=== PATIENT | female | born 1930 | race Caucasian/White ===

== ENCOUNTER 2017-02-21 09:13 | Inpatient (IN) | payer MEDICARE ==
--- NOTE | 2017-02-21 09:44 | Emergency Department Record ---
History of Present Illness - General Chief complaint: Weakness Stated complaint: WEAK, DIZZY Time Seen by Provider: 02/21/17 09:32 Source: Patient, Family, EMS Mode of Arrival: Stretcher - History of Present Illness Initial comments: The patient states she awakened this morning and attempted to get up to go to the bathroom. When she stood up by the bed, she felt a severe urge to urinate, but her legs "wouldn't move" to get to the bathroom. She also felt lightheaded, so fell backwards onto her bed. She may have had near syncope at that time, but she denies f,c,n,c,diaphoresis, chest pain, pressure, indigestion, tightness. EMS reports patient orthostatic at scene: 172/90 lying down to 117 systolic standing with dizzy symptoms. She now denies any symptoms resting on cart . PMH includes GERD, htn, DVT, CAD, low thyroid. PSH includes lung cancer l995 with lobectomy and no recurrence, appy, thyroidectomy. Son at bedside reports that his mother lives alone in her own home, has her medications electronically regulated for her to take, occasionally hallucinates at night time. He is there every day after work to check on her. She was incontinent at home due to this event. Her PCP is Dr. Cook. Complaint: Generalized weakness -: Unknown Location: Generalized Improves with: None Worsens with: None Associated Symptoms: Denies other symptoms - Naty Coma Scale Eye Response: (4) Open spontaneously Motor Response: (6) Obeys commands Verbal Response: (5) Oriented [place] Total: 15 - Related Data Home Medications Medication Instructions Recorded Confirmed Last Taken Cholecalciferol (Vitamin D3) 1,000 unit PO QHS 03/13/15 02/21/17 1 Day Ago [Vitamin D3] ~02/20/17 Folic Acid/Multivit-Min/Lutein 1 each PO DAILY tab.chew 03/04/16 02/21/17 1 Day Ago [Centrum Silver Chewable Tablet] ~02/20/17 Allergies Allergy/AdvReac Type Severity Reaction Status Date / Time Penicillins [PENICILLINS] Allergy Mild RASH Verified 02/21/17 09:24 Sulfa (Sulfonamide Allergy Mild RASH Verified 02/21/17 09:24 Antibiotics) Travel Screening - Travel/Exposure Within Last 30 Days Have you traveled within the last 30 days?: No Review of Systems Reviewed: No additional complaints except as noted below Constitutional: Reports: As per HPI. Denies: Chills, Fever, Malaise, Night sweats, Weakness, Weight change Eyes: Reports: As per HPI. Denies: Eye discharge, Eye pain, Photophobia, Vision change ENT: Reports: As per HPI. Denies: Congestion, Dental pain, Ear pain, Epistaxis , Hearing loss, Throat pain Respiratory: Reports: As per HPI. Denies: Cough, Dyspnea, Hemoptysis, Stridor, Wheezes Cardiovascular: Reports: As per HPI. Denies: Arrhythmia, Chest pain, Dyspnea on exertion, Edema, Murmurs, Orthopnea, Palpitations, Paroxysmal nocturnal dyspnea, Rheumatic Fever, Syncope Endocrine: Reports: As per HPI. Denies: Fatigue, Heat or cold intolerance, Polydipsia, Polyuria Gastrointestinal: Reports: As per HPI. Denies: Abdominal pain, Constipation, Diarrhea, Hematemesis, Hematochezia, Melena, Nausea, Vomiting Genitourinary: Reports: As per HPI. Denies: Abnormal menses, Discharge, Dyspareunia, Dysuria, Frequency, Hematuria, Incontinence, Retention, Urgency Musculoskeletal: Reports: As per HPI. Denies: Arthralgia, Back pain, Gout, Joint swelling, Myalgia, Neck pain Skin: Reports: As per HPI. Denies: Bruising, Change in color, Change in hair/ nails, Lesions, Pruritus, Rash Neurological: Reports: As per HPI. Denies: Abnormal gait, Confusion, Headache, Numbness, Paresthesias, Seizure, Tingling, Tremors, Vertigo, Weakness Psychiatric: Reports: As per HPI. Denies: Anxiety, Auditory hallucinations, Depression, Homicidal thoughts, Suicidal thoughts, Visual hallucinations Hematological/Lymphatic: Reports: As per HPI. Denies: Anemia, Blood Clots, Easy bleeding, Easy bruising, Swollen glands Past Medical History - SOCIAL HISTORY Smoking Status: Former smoker Alcohol Use: None Drug Use: None - RESPIRATORY Hx Respiratory Disorders: No - CARDIOVASCULAR Hx Cardio Disorders: Yes Hx Deep Vein Thrombosis: Yes Hx Hypertension: Yes - NEURO Hx Neuro Disorders: No - GI Hx GI Disorders: Yes Hx Reflux: Yes - Hx Genitourinary Disorders: No - ENDOCRINE Hx Endocrine Disorders: Yes Hx Thyroid Disease: Yes - MUSCULOSKELETAL Hx Musculoskeletal Disorders: Yes Hx Arthritis: Yes - PSYCH Hx Psych Problems: Yes Hx Anxiety: Yes - HEMATOLOGY/ONCOLOGY Hx Hematology/Oncology Disorders: Yes Hx Cancer: Yes (lung,breast) Family Medical History Any Significant Family History?: No Physical Exam - General General Appearance: Alert (able to give complete history of her CC), Oriented x3 , Cooperative, No acute distress - Head Head exam: Normal inspection - Eye Eye exam: Normal appearance, PERRL Pupils: Normal accommodation - ENT ENT exam: Normal exam, Mucous membranes moist, Normal external ear exam, Normal orophraynx, Other (bilateral cerumen occlusions) Ear exam: Normal external inspection. negative: External canal tenderness Nasal Exam: Normal inspection. negative: Discharge, Sinus tenderness Mouth exam: Normal external inspection, Tongue normal Teeth exam: Normal inspection. negative: Dental caries Throat exam: Normal inspection. negative: Tonsillar erythema, Tonsillar exudate - Neck Neck exam: Normal inspection, Full ROM, Other (well healed barely visible surgical scar over thyroid region of neck). negative: Lymphadenopathy, Meningismus, Tenderness - Respiratory Respiratory exam: Normal lung sounds bilaterally. negative: Respiratory distress - Cardiovascular Cardiovascular Exam: Regular rate, Normal rhythm, Normal heart sounds - GI/Abdominal GI/Abdominal exam: Soft, Normal bowel sounds. negative: Tenderness - Rectal Rectal exam: Deferred - exam: Deferred - Extremities Extremities exam: Normal inspection, Full ROM, Normal capillary refill. negative: Calf tenderness, Pedal edema, Tenderness - Back Back exam: Reports: Normal inspection, Full ROM. Denies: Muscle spasm, Rash noted, Tenderness - Neurological Neurological exam: Alert, CN II-XII intact, Oriented X3, Reflexes normal - Psychiatric Psychiatric exam: Normal affect, Normal mood - Skin Skin exam: Dry, Intact, Normal color, Warm Course Vital Signs 02/21/17 09:15 Temperature 98.3 F Pulse Rate 68 Respiratory 18 Rate Blood Pressure 161/85 Pulse Ox 98 - Reevaluation(s) Reevaluation #1: Per nurse, the EMS recorded orthostatic changes of BP from 172/90 systolic down to 116/ when standing with symptoms of dizziness but not syncope. 02/21/17 10:05 Reevaluation #2: HUMPHREY Stephens who accepts patient for Dr. Cook service. Kat will write orders when patient gets to floor. 02/21/17 12:23 02/21/17 12:25 Medical Decision Making - Management Options MDM Management: Additional Work-up Planned (e.g. ADM/Transfer/OP Study) - Data Complexity MDM Data: Labs Ordered and/or Reviewed, X-Ray Ordered and/or Reviewed (CXR: Emphysematous changes; old thoracotomy, left volume loss. Noncontrast Head CT: No acute intracranial process; remote lacunar infarcts in the lentiform nuclei per Radiologist.), EKG Ordered and/or Reviewed - Lab Data Result diagrams: 02/21/17 09:37 02/21/17 11:29 - EKG Data -: EKG Interpreted by Al EKG: No Acute Changes (Compared to prior of 04-14-16 her R waves progression has worsened slightly, one lead difference, but may be lead placement.) Disposition Disposition: Admit Clinical Impression: Near syncope, Renal insufficiency, Orthostasis Disposition: Still a Patient at [facility] Decision to Admit: Admit from ER Decision to Admit Date: 02/21/17 Decision to Admit Time: 12:24 Accepting Physician: Dr. Cook/ Kat Sanchez Time Discussed w/Accepting Physician: 12:24 Condition: (1) Good
[2017-02-21 09:49] LABS: BASO % 0.5 % (0-6); EOS % 1.6 % (0-6); GRAN % 54.1 % (47-80); HEMATOCRIT 36.5 % (35.0-47.0); LYMPH % 35.8 % (16-45); MEAN CELL VOLUME 97.9 fl (81-97); MEAN CORPUSCULAR HGB CONC 32.9 g/dl (32-36); MEAN PLATELET VOLUME 12.1 fl (7.4-10.4); PLATELET COUNT 195 K/uL (130-400); RED BLOOD COUNT 3.73 M/uL (3.80-5.40); RED CELL DISTRIBUTION WIDTH 13.4 % (11.5-14.5); WHITE BLOOD COUNT W/O DIFF 6.1 K/uL (4.2-12.2)
[2017-02-21 10:07] LABS: MEAN CORPUSCULAR HEMOGLOBIN 32.1 pg (27-33)
[2017-02-21 10:08] LABS: LACTIC ACID 1.3 mmol/L (0.7-2.1)
[2017-02-21 10:19] LABS: INR 2.58; PROTHROMBIN TIME (PATIENT) 29.1 SECONDS (9.5-12.1)
[2017-02-21 10:35] LABS: D-DIMER < 0.19 mg/L FEU (0-0.59)
[2017-02-21] MEDS ORDERED: 0.9 % SODIUM CHLORIDE 500ML 250 ML IV SCH (10:45)
[2017-02-21 11:30] LABS: TOTAL PROTEIN 7.2 gm/dL (6.3-8.2)
[2017-02-21 11:31] LABS: ALKALINE PHOSPHATASE 68 U/L (38-126); ALT/SGPT 41 U/L (9-52); AST/SGOT 48 U/L (14-36); BILIRUBIN,DIRECT 0.3 mg/dL (0-0.3); CKMB 3.3 ug/L (0-6); TROPONIN I < 0.012 ng/mL (0.00-0.034)
[2017-02-21 11:34] LABS: URINE APPEARANCE CLEAR; URINE BILIRUBIN NEGATIVE (NEGATIVE); URINE BLOOD NEGATIVE (NEGATIVE); URINE COLOR YELLOW; URINE GLUCOSE (UA) NEGATIVE (NEGATIVE); URINE KETONE NEGATIVE (NEGATIVE); URINE LEUKOCYTE ESTERASE NEGATIVE (NEGATIVE); URINE NITRITE NEGATIVE (NEGATIVE); URINE PROTEIN NEGATIVE (NEGATIVE); URINE UROBILINOGEN 0.2 E.U./dL (0.20 - 1.00)
[2017-02-21 12:05] LABS: ANION GAP 4.1 (7-16); CARBON DIOXIDE 27.9 mmol/L (22-30); CREATININE 1.8 mg/dL (0.52-1.04)
[2017-02-21] MEDS: 0.9 % SODIUM CHLORIDE 1000ML 1,000 ML IV PRN (18:54)
[2017-02-21] MEDS: LOSARTAN POTASSIUM 25 MG TABLET PO SCH (21:07)
[2017-02-21] MEDS: WARFARIN 5 MG TAB PO SCH (21:07)
[2017-02-22] MEDS: LEVOTHYROXINE SODIUM 50 MCG TABLET PO SCH (06:10)
[2017-02-22] MEDS: PANTOPRAZOLE SODIUM 40 MG TABLET PO SCH (06:10)
[2017-02-22 06:27] LABS: ALB/GLOB RATIO 1.1 (1.1-1.8); ALBUMIN 3.3 gm/dL (3.5-5.0); ANION GAP 1.2 (7-16); BILIRUBIN,TOTAL 0.62 mg/dL (0.2-1.3); CARBON DIOXIDE 26.8 mmol/L (22-30); CREATININE 1.5 mg/dL (0.52-1.04); TOTAL PROTEIN 6.2 gm/dL (6.3-8.2)
--- NOTE | 2017-02-22 07:22 | RADIOLOGY REPORT ---
EXAM: CHEST, TWO VIEWS HISTORY: WEAKNESS, DIZZINESS. TECHNIQUE: Two views of the chest were obtained. Comparison: None. FINDINGS: The lungs are hyperinflated with upper lobe lucency. Volume loss on the left with left hilar surgical clips. Scattered calcified granulomata. No consolidative change. The cardiac silhouette is not enlarged. The diaphragm is unremarkable. Osteopenia. Left thoracotomy change. IMPRESSION: 1. EMPHYSEMA. THORACOTOMY CHANGE ON THE LEFT WITH VOLUME LOSS. NO ACUTE INTRATHORACIC PROCESS. 2. OLD GRANULOMATOUS DISEASE. JOB NUMBER: [id number] MTDD
--- NOTE | 2017-02-22 07:26 | CT SCAN REPORT ---
EXAM: HEAD CT WITHOUT CONTRAST HISTORY: ACUTE GENERALIZED WEAKNESS. TECHNIQUE: Contiguous axial images from the cerebral convexities to the foramen magnum were obtained without contrast. Comparison: None. Hand dominance: Unknown. FINDINGS: The brain volume is normal. No acute intracranial hemorrhage, mass effect, or midline shift. Small remote lacunar infarcts in the lentiform nuclei. No CT evidence of large acute territorial infarct. The ventricles, basal cisterns, and sulci are within normal limits. The osseous structures, soft tissues and paranasal sinuses are unremarkable. IMPRESSION: 1. NO ACUTE INTRACRANIAL PROCESS. 2. 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 JOB NUMBER: [id number] MTDD
--- NOTE | 2017-02-22 09:34 | History & Physical ---
History of Present Illness - Date of Service Date of Service for History & Physical: 02/22/17 - History of Present Illness Admitting Diagnosis: JOVITA; Near syncope; renal insufficiency; orthostasis History of Present Illness: 87yo female with CC of weakness. She has a history of HTN, arthritis, Pulmonary embolism requiring filter placement, on long-term anticoagulation with warfarin , s/p lobectomy, GERD, hypothyroidism, h/o lung and breast cancer. Patient's family also admit they have noticed some memory loss. Patient was brought to ED by EMS after trying to stand up from her bed quickly and her legs gave out from under her. She states she felt very weak all over and was unable to support herself. While in the ED, patient had EKG that showed NSR with no acute ischemic changes. 1st set of CE returned wnl. She was noted to be significantly orthostatic with resting BP of 172/90 which then dropped to 116/78 when standing. She had CXR showing emphysematous changes and lobectomy but no acute process. UA negative for infection. CT head showed remote lacunar infarcts but nothing acute. CBC showed normal wbc and slighlty low hgb at 12.0. Her CMP showed JOVITA with BN of 52 and Cr of 1.8, gfr 28. Lactic acid wnl at 1.3 as was TSH at 1.61. INR was therapeutic at 2.58 and DDimer negative. Patient was admitted for JOVITA, weakness, orthostasis with near syncopal episode. 02/22/17- Patient states she is feeling better today. She says her weakness has improved but not back to her baseline. still required assistance to get to the bathroom. Sometimes uses a cane at home but hasn't tried a walker. She lives alone currently, however, her son visits her daily for meals and helps with household needs as does her daughter. She also has some home health services like the life alert bracelet and an automatic medication dispenser. Family is interested in seeing if there are other home services or if transition to assisted living could be an option. Maria E has also followed with Dr. Ahn, cardiology and last saw him in November of this year. At that time, Dr. Ahn did not feel any further diagnostic imaging was necessary. last echo from 2014 showed normal EF with aortic stenosis. He felt patient's blood pressure has not been adequately controlled 2/2 compliance. his records states that he is prescribing her clonidine, co-reg and losartan, while our records have her taking HCTZ and losartan. I have asked family to bring in medications. PCP: [facility]- [facility] Travel Screening - Travel/Exposure Within Last 30 Days Have you traveled within the last 30 days?: No - Travel/Exposure Within Last Year Have you traveled outside the [place] in the last year?: No - Additonal Travel Details Have you been exposed to anyone with a communicable illness?: No - Travel Symptoms Symptom Screening: None Review of Systems Constitutional: Reports: As per HPI. Denies: Chills, Fever, Malaise, Night sweats, Weakness, Weight change Eyes: Reports: As per HPI. Denies: Eye discharge, Eye pain, Photophobia, Vision change ENT: Reports: As per HPI. Denies: Congestion, Dental pain, Ear pain, Epistaxis , Hearing loss, Throat pain Respiratory: Reports: As per HPI. Denies: Cough, Dyspnea, Hemoptysis, Stridor, Wheezes Cardiovascular: Reports: As per HPI. Denies: Arrhythmia, Chest pain, Dyspnea on exertion, Edema, Murmurs, Orthopnea, Palpitations, Paroxysmal nocturnal dyspnea, Rheumatic Fever, Syncope Endocrine: Reports: As per HPI. Denies: Fatigue, Heat or cold intolerance, Polydipsia, Polyuria Gastrointestinal: Reports: As per HPI. Denies: Abdominal pain, Constipation, Diarrhea, Hematemesis, Hematochezia, Melena, Nausea, Vomiting Genitourinary: Reports: As per HPI. Denies: Abnormal menses, Discharge, Dyspareunia, Dysuria, Frequency, Hematuria, Incontinence, Retention, Urgency Musculoskeletal: Reports: As per HPI. Denies: Arthralgia, Back pain, Gout, Joint swelling, Myalgia, Neck pain Skin: Reports: As per HPI. Denies: Bruising, Change in color, Change in hair/ nails, Lesions, Pruritus, Rash Neurological: Reports: As per HPI. Denies: Abnormal gait, Confusion, Headache, Numbness, Paresthesias, Seizure, Tingling, Tremors, Vertigo, Weakness Psychiatric: Reports: As per HPI. Denies: Anxiety, Auditory hallucinations, Depression, Homicidal thoughts, Suicidal thoughts, Visual hallucinations Hematological/Lymphatic: Reports: As per HPI. Denies: Anemia, Blood Clots, Easy bleeding, Easy bruising, Swollen glands Past Medical History - SOCIAL HISTORY Smoking Status: Former smoker - RESPIRATORY Hx Respiratory Disorders: No Hx Pulmonary Embolism: Yes - CARDIOVASCULAR Hx Cardio Disorders: Yes Hx Deep Vein Thrombosis: Yes Hx Hypertension: Yes - NEURO Hx Neuro Disorders: No - GI Hx GI Disorders: Yes Hx Reflux: Yes - Hx Genitourinary Disorders: No - ENDOCRINE Hx Endocrine Disorders: Yes Hx Thyroid Disease: Yes - MUSCULOSKELETAL Hx Musculoskeletal Disorders: Yes Hx Arthritis: Yes - PSYCH Hx Psych Problems: Yes Hx Anxiety: Yes - HEMATOLOGY/ONCOLOGY Hx Hematology/Oncology Disorders: Yes Hx Cancer: Yes (lung,breast) Family Medical History Any Significant Family History?: No H&P Meds/Allergies - Allergies Allergies: Allergies Allergy/AdvReac Type Severity Reaction Status Date / Time Penicillins [PENICILLINS] Allergy Mild RASH Verified 02/21/17 09:24 Sulfa (Sulfonamide Allergy Mild RASH Verified 02/21/17 09:24 Antibiotics) - Home Medications Home Medications Medication Instructions Recorded Confirmed Last Taken Cholecalciferol (Vitamin D3) 1,000 unit PO QHS 03/13/15 02/21/17 1 Day Ago [Vitamin D3] ~02/20/17 Folic Acid/Multivit-Min/Lutein 1 each PO DAILY tab.chew 03/04/16 02/21/17 1 Day Ago [Centrum Silver Chewable Tablet] ~02/20/17 - Active Medications Active Medications: Current Medications Escitalopram Oxalate (Lexapro) 10 mg PO DAILY ON LICENSE OF [facility] Sodium Chloride () 1,000 mls @ 83 mls/hr IV .Q12H3M PRN PRN Reason: LARGE VOLUME IV Last Admin: 02/21/17 18:54 Dose: 83 mls/hr Levothyroxine Sodium (Synthroid) 50 mcg PO DAILYTHY KEVIN Last Admin: 02/22/17 06:10 Dose: 50 mcg Losartan Potassium (Cozaar) 25 mg PO BID KEVIN Last Admin: 02/21/17 21:07 Dose: 25 mg Multivitamins/Minerals (Centrum) 1 tab PO DAILY KEVIN Pantoprazole Sodium (Protonix) 40 mg PO DAILYAC KEVIN Last Admin: 02/22/17 06:10 Dose: 40 mg Vitamin D (Vitamin D3) 1,000 unit PO QHS KEVIN Warfarin Sodium (Coumadin) 5 mg PO QHS KEVIN Last Admin: 02/21/17 21:07 Dose: 5 mg Physical Exam - Vital Signs Vital Signs: Vital Signs - Last 24 Hrs Temp Pulse Resp BP BP Pulse Ox 02/22/17 05:30 98.8 F 60 18 173/83 98 02/21/17 21:00 18 02/21/17 20:00 98.2 F 57 L 18 130/61 97 02/21/17 18:17 62 14 02/21/17 17:00 98.7 F 62 18 142/71 96 02/21/17 12:50 98.5 F 69 18 172/85 184/76 96 - General General Appearance: Alert (able to give complete history of her CC), Oriented x3 , Cooperative, No acute distress, Other ( impairment with remote memory ) - Head Head exam: Normal inspection - Eye Eye exam: Normal appearance, PERRL Pupils: Normal accommodation - ENT ENT exam: Normal exam, Mucous membranes moist, Normal external ear exam, Normal orophraynx, Other (bilateral cerumen occlusions) Ear exam: Normal external inspection. negative: External canal tenderness Nasal Exam: Normal inspection. negative: Discharge, Sinus tenderness Mouth exam: Normal external inspection, Tongue normal Teeth exam: Normal inspection. negative: Dental caries Throat exam: Normal inspection. negative: Tonsillar erythema, Tonsillar exudate - Neck Neck exam: Normal inspection, Full ROM, Other (well healed barely visible surgical scar over thyroid region of neck). negative: Lymphadenopathy, Meningismus, Tenderness - Respiratory Respiratory exam: Normal lung sounds bilaterally. negative: Respiratory distress - Cardiovascular Cardiovascular Exam: Regular rate, Normal rhythm, Systolic murmur (aortic stenosis) - GI/Abdominal GI/Abdominal exam: Soft, Normal bowel sounds. negative: Tenderness - Rectal Rectal exam: Deferred - exam: Deferred - Extremities Extremities exam: Normal inspection, Full ROM, Normal capillary refill. negative: Calf tenderness, Pedal edema, Tenderness - Back Back exam: Reports: Normal inspection, Full ROM. Denies: Muscle spasm, Rash noted, Tenderness - Neurological Neurological exam: Alert, CN II-XII intact, Oriented X3, Reflexes normal - Psychiatric Psychiatric exam: Normal affect, Normal mood - Skin Skin exam: Dry, Intact, Normal color, Warm Results - Labs Result Diagrams: 02/21/17 09:37 02/22/17 06:00 Labs Last 24 Hours: Laboratory Results - last 24 hr 02/22/17 06:00 Sodium 139 Potassium 4.1 Chloride 111 H Carbon Dioxide 26.8 Anion Gap 1.2 L BUN 34 H Creatinine 1.5 H Estimated GFR 35 Random Glucose 86 Calcium 8.6 Total Bilirubin 0.62 AST 25 ALT 35 Alkaline Phosphatase 59 Total Protein 6.2 L Albumin 3.3 L Globulin 2.9 Albumin/Globulin Ratio 1.1 - Imaging and Cardiology Chest x-ray Status: Report reviewed (emphysema; lobectomy; NAP) CT scan - head Status: Report reviewed (remote lacunar infarcts; NAP) VTE H&P Assessment - Risk for VTE Risk for VTE: Yes Risk Level: Low Risk Assessment Date: 02/22/17 Risk Assessment Time: 13:07 VTE Orders Placed or Will Be Placed: Yes Plan - Inpatient Certification Inpatient Certification: Admit to inpatient care: Based on my medical assessment, after consideration of patient's risk factors (age, co-morbidities and patient presenting symptoms and acuity), I expect that this patient will remain in the hospital greater than or equal to two midnights and that the services needed warrant inpatient care because: Patient Risk Factors: [weakness, age, JOVITA, dehydration. ] Estimated length of stay: [48-72 The patient may reasonably be expected to be discharged or transferred to a hospital within 96 hours after admission to [facility]. Services needed: [IV hydration, PT/OT] Post hospital care (if known): [home health vs. assisted living] I certify that my determination is in accordance with my understanding of Medicare requirements for reasonable and necessary inpatient services. 02/22/17 13:07 - Detailed Diagnosis and Plan (1) Weakness Current Visit: Yes Status: Acute Base Code: R53.1 - WEAKNESS Comment: - Improved but not back to baseline. patient still requiring assitance ambulating to bathroom. CT head and CXR negative for acute chagnes. UA negative for infection. HGB slightly low at 12.0. CE negative and EKG without changes. suspect weakness 2/2 dehydration wtih BUN elevated at 52 and patient currently on diuretic therapy. -PT/OT ordered to eval for home health need vs subacute rehab -discontinue HCTZ -continue cardiac monitoring -continue IV hydration with NS and encourage oral intake -vitals q8H -repeat labs qam (2) JOVITA (acute kidney injury) Current Visit: Yes Status: Acute Base Code: N17.9 - ACUTE KIDNEY FAILURE, UNSPECIFIED Comment: 02/22/17- Improved. BUN of 52 with Cr of 1.8 eGFR at 28. Per son, he thinks her schedule may have gotten off due to the holiday and she may not have been eating and drinking like she normally does over the past few days. Repeat BUN/Cr following IV rescuscitation was 34 and 1.5 respectively with eGFR of 35. -continue IV hydration wt NS -hold HCTZ -continue losartan 25mg po bid -repeat labs qam (3) Orthostasis Current Visit: Yes Status: Acute Base Code: I95.1 - ORTHOSTATIC HYPOTENSION Comment: 02/22/17- Patient noted to have significant orthostasis upon arrival with systolic drop from 172mmhg to 116mmhg from sitting to standing and pt became symptomatically dizzy. Patient follows [facility] both her pcp and cardiology, Dr. Ahn, for htn. conflicting medication records from those offices. I have requested family to bring in medications she is currently taking. -discontinue the HCTZ -will continue the losartan 25mg po bid -Dr. Ahn's office has her listed as taking both coreg and clonidine. Once son brings in meds will know if she is still taking these which may also be contributing to orthostasis. -continue to monitor vitals q8H along [facility] orthostats. (4) DVT prophylaxis Current Visit: Yes Status: Acute Base Code: [id number] - Comment: 02/22/17- Patient is therapeutic on coumadin with INR of 2.58 -will have pharmacy manage and continue home dose of coumadin (5) Medication-only resuscitation status Current Visit: Yes Status: Acute Base Code: Z78.9 - OTHER SPECIFIED HEALTH STATUS Comment: 02/22/17- patient is medication only rescuscitation status
[2017-02-22] MEDS: MULTIVITAMINS/MINERALS TABLET PO SCH (10:11)
[2017-02-22] MEDS: LOSARTAN POTASSIUM 25 MG TABLET PO SCH ×2 (10:11→22:52)
[2017-02-22] MEDS: ESCITALOPRAM 10 MG TABLET PO SCH (10:11)
--- NOTE | 2017-02-22 12:13 | Rehab Evaluation ---
Patient Information - Patient Information Diagnosis: Generalized weakness, near syncope, JOVITA, renal insufficiency, orthostasis Ordered Treatment: OT Evaluate and Treat Status: Initial Evaluation Surgery: No History: Detail Past Medical/Surgical Hx: PAST MEDICAL/SURGICAL HISTORY Past Surgical History appendectomy thyroidectomy partial lung removal PMH - Respiratory Hx Respiratory Disorders No Hx Pulmonary Embolism Yes PMH - Cardiovascular Hx Cardiovascular Disorders Yes Hx Deep Vein Thrombosis Yes Hx Hypertension Yes PMH - Neuro Hx Neurological Disorders No PMH - GI Hx Gastrointestinal Disorders Yes Hx Gastroesophageal Reflux Yes PMH - Hx Genitourinary Disorders No PMH - Endocrine Hx Endocrine Disorders Yes Hx Thyroid Disease Yes PMH - Musculoskeletal Hx Musculoskeletal Disorders Yes Hx Arthritis Yes PMH - Psych Hx Psychiatric Problems Yes Hx Anxiety Yes PMH - Hematology/Oncology Hx Hematology/Oncology Yes Disorders Hx Cancer Yes: lung,breast Premorbid Status: Detail (Pt. receives assistance with some housework (such as vacuuming), cooking, and laundry from son and daughter. Pt. does not drive, but reports she has rides available whenever she needs them. Pt. was Modified Ind mobility, using a straight cane prn, and reported using stairs multiple times per day. Pt. was independent with ADL's including dressing, toileting using a standard toilet, showering standing in tub shower, and standing at sink for hygiene tasks.) Social History: Detail (Pt. lives independently in bi-level house with 1-step entryway. Upon entering, pt. must go up or down stairs. Kitchen, bedroom, living room, and bathroom are upstairs (5 steps with 1 railing). Laundry facilities and a second bathroom with walk-in shower are downstairs. Pt. is originally from [facility] and has lived in .. 60 years. PT. has a daughter Carol (resides in [place]), son Adam (resides in [place] on [facility]), and another son who resides in [place]. Pt. has a positive support system.) Precautions: [place], Fall - Time With Patient Total Time Spent With Patient (Min): 40 Subjective Information - Subjective Information Per Patient Objective Data - Pain Pain Present: Yes (Tailbone/back pain per pt. report.) - Mental Status Patient Orientation: Person, Place - Visual Perception Other (Reading glasses) - ROM Within normal limits (BUE), Other (Pt. reports hx of trigger finger that comes and goes.) - Strength/Tone Not within normal limits (MMT LUE 4-, RUE 4) - Coordination Appears within normal limits for therapeutic activities - Bed Mobility Needs Assist (Min A from supine to sit EOB from hospital bed with head raised and use of railing.) - Transfers Needs Assist (Min A sit <> stand bed to 2WW with posterior lean. VC's use/ navigation of walker.) - Balance Balance Sitting: Good Balance Standing: Fair - Sensation Intact - ADL's/IADL's Detail (Min A toileting (mobility and clothing mgt.). Dressing TBA. Pt. independent to wash face standing at sink with occasional UE support from 2WW.) Therapy Assessment - Therapy Assessment Detail (Pt. would benefit from continued skilled OT services to increase BUE strength and independence with ADL's. Will continue to assess status and needs.) Patient Education - Patient Education Teaching Topic: Exercise/Activity, Other (PRN equipment use or other relavent educ. required.) Barriers To Learning: Other (Pt. demo. mild comprehension impairment that may or may not effect ability to learn; therapeutic approach will be adapted to pt.' s needs.) Problem List - Problem List Occupational Therapy Problem List: Detail (BUE strength, mobility, decreased independence with ADL's.) Goals - Goals Occupational Therapy Goals: 1) Increase independence in ADL's to return to pre- morbid home environment with support and/or AE prn. 2) Increase BUE strength to 4+ in order to increase ease of sit<>stand transfers and ADL's. 3) Increase independence of mobility to return to pre-morbid home environment and reduce fall risk during ADL activities. Prognosis - Prognosis Good (Good for stated goals.) Plan - Plan Occupational Therapy Plan: Cont. to assess needs as pt. progresses during duration of hospital stay. OT recommended Mon through Fri, 2-4x's/week.
--- NOTE | 2017-02-22 12:47 | Rehab Evaluation ---
Patient Information - Patient Information Diagnosis: near syncope, renal insufficiency Ordered Treatment: PT Evaluate and Treat Status: Initial Evaluation Surgery: No History: Detail Past Medical/Surgical Hx: PAST MEDICAL/SURGICAL HISTORY Past Surgical History appendectomy thyroidectomy partial lung removal PMH - Respiratory Hx Respiratory Disorders No Hx Pulmonary Embolism Yes PMH - Cardiovascular Hx Cardiovascular Disorders Yes Hx Deep Vein Thrombosis Yes Hx Hypertension Yes PMH - Neuro Hx Neurological Disorders No PMH - GI Hx Gastrointestinal Disorders Yes Hx Gastroesophageal Reflux Yes PMH - Hx Genitourinary Disorders No PMH - Endocrine Hx Endocrine Disorders Yes Hx Thyroid Disease Yes PMH - Musculoskeletal Hx Musculoskeletal Disorders Yes Hx Arthritis Yes PMH - Psych Hx Psychiatric Problems Yes Hx Anxiety Yes PMH - Hematology/Oncology Hx Hematology/Oncology Yes Disorders Hx Cancer Yes: lung,breast Premorbid Status: Detail (Pt. receives assistance with some housework (such as vacuuming), cooking, and laundry from son and daughter. Pt. does not drive, but reports she has rides available whenever she needs them. Pt. was Modified I mobility, using a straight cane prn, and reported using stairs multiple times per day. Pt. was independent with ADL's including dressing, toileting using a standard toilet, showering standing in tub shower, and standing at sink for hygiene tasks.) Social History: Detail (Pt. lives independently in bi-level house with 1-step entryway. Upon entering, pt. must go up or down stairs. Kitchen, bedroom, living room, and bathroom are upstairs (5 steps with 1 railing). Laundry facilities and a second bathroom with walk-in shower are downstairs. Pt. is originally from [facility] and has lived in .. 60 years. PT. has a daughter Carol (resides in [place]), son Adam (resides in [place] on [facility]), and another son who resides in [place].) Precautions: None given, Spring, Fall - Time With Patient Total Time Spent With Patient (Min): 30 Treatment Procedures: Detail (PT initial evaluation.) Subjective Information - Subjective Information Per Patient (The patient had some complaints of tail bone region "pressure".) Objective Data - Mental Status Patient Orientation: Oriented x3 (The patient incorrectly stated month was January.) - Visual Perception Appears within normal limits for therapeutic activities - ROM Within normal limits, Not within normal limits (The patient had limited AROM with knee extension : L aprox. -10 degrees, R -20 degrees. The patient's L dorsiflexion was to neutral.) - Strength/Tone Not within normal limits (The patient's LE strength was generally 4+ to 5/5 except for R hip flexors 4-/5, L 4 /5.) - Coordination Appears within normal limits for therapeutic activities - Bed Mobility Needs Assist (The patient required minimal PA with supine to sit.) - Transfers Independent (The patient was independent with sit to and from stand transfer with supervision for safety only and verbal cues to push up on surface and not on walker. The patient required supervision for safety with toilet transfer.) - Balance Balance Sitting: Good Balance Standing: Fair (The patient was able to pull up pants and wash her hands without support with wider base of support. The patient leaned back slightly when washing hands and required Cg to maintain balance. The patient's balance was not formally assessed using a standardized balance test.) - Gait Detail (The patient ambulated with 2 wheeled walker a distance of 26 feet x 2 with supervision for safety of 1 and 1 to push IV pole and occasional verbal cues for proper technique. The patient's gait pattern was charecterized by shuffling gait pattern and decreased stride length bilaterally.) Therapy Assessment - Therapy Assessment Detail (The patient requires supervision for safety with mobility and has decreased balance and ability to complete sustained physical activity. Feel the patient would benefit from ongoing inpatient PT to improve functional status. Upon discharge from [facility] the patient would possibly benefit from ongoing PT either home health or subacute to improve functional status. Judgement of need for subacute Rehab will be assessed once patient's medical condition stabilizes.) Problem List - Problem List Physical Therapy Problem List: Detail (1) Decreased standing balance 2) Decreased ability to complete sustained physical activity 3) Supervision for safety with mobility.) Goals - Goals Physical Therapy Goals: 1) Assess the patient's balance using standarized balance test. 2) The patient will ambulate independently with use of assistive device 50-100 feet on levels and stairs. 3) The patient will tolerate 30 minutes of physical acitivity with one rest period. 4) The patient will be independent with all transfers. Prognosis - Prognosis Good (Good for return to home.) Plan - Plan Physical Therapy Plan: PT M-F for gait training, transfer traning, balance and muscular endurance exercises.
[2017-02-22] MEDS: CHOLECALCIFEROL 1,000 UNIT TABLET PO SCH (22:52)
[2017-02-22] MEDS: WARFARIN 5 MG TAB PO SCH (22:52)
[2017-02-23] MEDS: LEVOTHYROXINE SODIUM 50 MCG TABLET PO SCH (06:45)
[2017-02-23] MEDS: PANTOPRAZOLE SODIUM 40 MG TABLET PO SCH (06:45)
[2017-02-23 07:00] LABS: ALB/GLOB RATIO 1.1 (1.1-1.8); ALBUMIN 3.1 gm/dL (3.5-5.0); ANION GAP 0.1 (7-16); BILIRUBIN,TOTAL 0.46 mg/dL (0.2-1.3); CARBON DIOXIDE 26.9 mmol/L (22-30); CREATININE 1.2 mg/dL (0.52-1.04); TOTAL PROTEIN 5.9 gm/dL (6.3-8.2)
[2017-02-23] MEDS: MULTIVITAMINS/MINERALS TABLET PO SCH (09:29)
[2017-02-23] MEDS: LOSARTAN POTASSIUM 25 MG TABLET PO SCH ×2 (09:29→21:59)
[2017-02-23] MEDS: ESCITALOPRAM 10 MG TABLET PO SCH (09:29)
[2017-02-23] MEDS: 0.9 % SODIUM CHLORIDE 1000ML 1,000 ML IV PRN (09:33)
[2017-02-23] MEDS ORDERED: ACETAMINOPHEN 500 MG TABLET PO PRN (11:42)
--- NOTE | 2017-02-23 11:45 | Physician Progress Note ---
Subjective - Date Date of Physician Progress Note: 02/23/17 - Subjective Location: Pelvis (coccyx) Radiation: Non-Radiating Severity scale (1-10): 4 Quality: Constant Objective - Vital Signs Vital Signs: Vital Signs - Last 24 Hrs Temp Pulse Resp BP BP Pulse Ox 02/23/17 09:00 16 02/23/17 08:00 98.6 F 73 16 159/83 99 02/23/17 05:00 97.9 F 64 16 161/76 97 02/22/17 21:00 98.6 F 71 16 145/65 98 02/22/17 13:00 98.7 F 62 16 128/70 99 - General General Appearance: Alert (able to give complete history of her CC), Oriented x3 , Cooperative, No acute distress, Other ( impairment with remote memory ) - Head Head exam: Normal inspection - Eye Eye exam: Normal appearance, PERRL Pupils: Normal accommodation - ENT ENT exam: Normal exam, Mucous membranes moist, Normal external ear exam, Normal orophraynx, Other (bilateral cerumen occlusions) Ear exam: Normal external inspection. negative: External canal tenderness Nasal Exam: Normal inspection. negative: Discharge, Sinus tenderness Mouth exam: Normal external inspection, Tongue normal Teeth exam: Normal inspection. negative: Dental caries Throat exam: Normal inspection. negative: Tonsillar erythema, Tonsillar exudate - Neck Neck exam: Normal inspection, Full ROM, Other (well healed barely visible surgical scar over thyroid region of neck). negative: Lymphadenopathy, Meningismus, Tenderness - Respiratory Respiratory exam: Normal lung sounds bilaterally. negative: Respiratory distress - Cardiovascular Cardiovascular Exam: Regular rate, Normal rhythm, Systolic murmur (aortic stenosis) - GI/Abdominal GI/Abdominal exam: Soft, Normal bowel sounds. negative: Tenderness - Rectal Rectal exam: Deferred - exam: Deferred - Extremities Extremities exam: Normal inspection, Full ROM, Normal capillary refill. negative: Calf tenderness, Pedal edema, Tenderness - Back Back exam: Reports: Normal inspection, Full ROM. Denies: Muscle spasm, Rash noted, Tenderness - Neurological Neurological exam: Alert, CN II-XII intact, Oriented X3, Reflexes normal - Psychiatric Psychiatric exam: Normal affect, Normal mood - Skin Skin exam: Dry, Intact, Normal color, Warm Assessment and Plan - Assessment and Plan (1) JOVITA (acute kidney injury) Current Visit: Yes Status: Acute Base Code: N17.9 - ACUTE KIDNEY FAILURE, UNSPECIFIED Comment: 02/23/17- Improved. GFR increased to 45. baseline is over 60. Per son, he thinks her schedule may have gotten off due to the holiday and she may not have been eating and drinking like she normally does over the past few days. -continue IV hydration wt NS -hold HCTZ -continue losartan 25mg po bid -repeat labs qam (2) DVT prophylaxis Current Visit: Yes Status: Acute Base Code: [id number] - Comment: 02/23/17- Patient is therapeutic on coumadin -will have pharmacy manage and continue home dose of coumadin (3) Medication-only resuscitation status Current Visit: Yes Status: Acute Base Code: Z78.9 - OTHER SPECIFIED HEALTH STATUS Comment: 02/23/17- patient is medication only rescuscitation status (4) Orthostasis Current Visit: Yes Status: Acute Base Code: I95.1 - ORTHOSTATIC HYPOTENSION Comment: 02/23/17- Patient noted to have significant orthostasis upon arrival with systolic drop from 172mmhg to 116mmhg from sitting to standing and pt became symptomatically dizzy. Patient follows [facility] both her pcp and cardiology, Dr. Ahn, for htn. conflicting medication records from those offices. Kat (SARAH ) had requested family to bring in medications she is currently taking. No medications to review yet at this point -discontinue the HCTZ -will continue the losartan 25mg po bid -Dr. Ahn's office has her listed as taking both coreg and clonidine. Once son brings in meds will know if she is still taking these which may also be contributing to orthostasis. -continue to monitor vitals q8H along [facility] orthostats. (5) Weakness Current Visit: Yes Status: Acute Base Code: R53.1 - WEAKNESS Comment: - Improved but not back to baseline. Today patient states she is feeling more weak than yesterday. Patient still requiring assitance ambulating to bathroom. CT head and CXR negative for acute chagnes. UA negative for infection. suspect weakness 2/2 dehydration -PT/OT ordered to eval for home health need vs subacute rehab -discontinue HCTZ -continue cardiac monitoring -continue IV hydration with NS and encourage oral intake -vitals q8H -repeat labs qam Results - Labs Result Diagrams: 02/21/17 09:37 02/23/17 06:33 Labs Last 24 Hours: Laboratory Results - last 24 hr 02/23/17 06:33 Sodium 141 Potassium 3.9 Chloride 114 H Carbon Dioxide 26.9 Anion Gap 0.1 L BUN 25 H Creatinine 1.2 H Estimated GFR 45 Random Glucose 89 Calcium 8.3 L Total Bilirubin 0.46 AST 30 ALT 35 Alkaline Phosphatase 54 Total Protein 5.9 L Albumin 3.1 L Globulin 2.8 Albumin/Globulin Ratio 1.1 DVT/PE Assessment - Risk for VTE Risk for VTE: No Risk Level: Low Risk Assessment Date: 02/22/17 Risk Assessment Time: 13:07 VTE Orders Placed or Will Be Placed: Yes - Active Medicaitons Current Medications: Current Medications Escitalopram Oxalate (Lexapro) 10 mg PO DAILY [facility] Last Admin: 02/23/17 09:29 Dose: 10 mg Sodium Chloride () 1,000 mls @ 83 mls/hr IV .Q12H3M PRN PRN Reason: LARGE VOLUME IV Last Admin: 02/23/17 09:33 Dose: 83 mls/hr Levothyroxine Sodium (Synthroid) 50 mcg PO DAILYTHY [facility] Last Admin: 02/23/17 06:45 Dose: 50 mcg Losartan Potassium (Cozaar) 25 mg PO BID [facility] Last Admin: 02/23/17 09:29 Dose: 25 mg Multivitamins/Minerals (Centrum) 1 tab PO DAILY [facility] Last Admin: 02/23/17 09:29 Dose: 1 tab Pantoprazole Sodium (Protonix) 40 mg PO DAILYAC [facility] Last Admin: 02/23/17 06:45 Dose: 40 mg Vitamin D (Vitamin D3) 1,000 unit PO QHS [facility] Last Admin: 02/22/17 22:52 Dose: 1,000 unit Warfarin Sodium (Coumadin) 5 mg PO QHS [facility] Last Admin: 02/22/17 22:52 Dose: 5 mg AMI Plan - Labs Result Diagrams: 02/21/17 09:37 02/23/17 06:33
--- NOTE | 2017-02-23 12:10 | Physical Therapy Tx Note ---
Physical Therapy Tx Note - Treatment Note Tolerated: Good Total Time Spent With Patient: 30 Physical Therapy Tx Note: Detail ( The patient was seen jointly with OT. The patient was in bed, but alert when PT and OT arrived. The patient was reluctant to participate but did cooperate after verbal encouragement. The patient stated " I am not going to a home but staying somewhere for 7 days to get stronger." The patient achieved supine to sit with minimal PA . The patient ambulated with wheeled walker a distance of 90 feet x 1 with CG of 1 for safety and 1 to push IV. During ambulation the patient began talking about going to see her mother and refused to lie down when she returned to her room. The patient was re -oriented to place and time. The patient was unable to be reoriented and insisted on walking out into the [place] to see her mother. The patient then ambulated without device with hand hold of 1 and 1 to push IV, a distance of 50 feet, occasional stagger steps were noted. The patient was persauded to walk to her room and sit in her chair for lunch. The patient was able to put on her shoes with verbal cues. Chair alarm was placed in chair and tray table was placed in front of patient, call light was unable to reach patient. Nursing staff was notified of patient's increased confusion and position in the chair. Patient was very confused this am which made participation in Rehab difficult. If confusion persists the patient is a questionable subacute rehab patient and may benefit from a buttermaker continuous churn care setting with a memory care unit. PT will monitor the patient's cognitive status) Physical Therapy Problem List: Detail (1) Decreased standing balance 2) Decreased ability to complete sustained physical activity 3) Supervision for safety with mobility.) Physical Therapy Goals: 1) Assess the patient's balance using standarized balance test. 2) The patient will ambulate independently with use of assistive device 50-100 feet on levels and stairs. 3) The patient will tolerate 30 minutes of physical acitivity with one rest period. 4) The patient will be independent with all transfers. Physical Therapy Plan: PT M-F once daily for gait training, transfer traning, balance and muscular endurance exercises. Will monitor cognitive status.
--- NOTE | 2017-02-23 15:42 | Occupational Therapy Tx Note ---
Occupational Therapy Tx Note - Treatment Note Tolerated: Fair Total Time Spent With Patient: 10 Occupational Therapy Treatment Note: Detail (Attempted OT treatment in the afternoon, pt sitting up at EOB with nursing. She refused to put on slippers stating the furniture would get dirty but then wanted her shoes. She refused to get up and participate in ADL activity stating she wanted to visit someone. Pt then stated she was tired and was encouraged to lie down. She required minimal assist to lift legs into bed and to scoot over. Pt left supine with bed rails up x 2 and sleeping. Pt was very confused and difficult to redirect. OT will continue to monitor and treat as able.) Occupational Therapy Problem List: Detail (BUE strength, mobility, decreased independence with ADL's.) Occupational Therapy Goals: 1) Increase independence in ADL's to return to pre- morbid home environment with support and/or AE prn. 2) Increase BUE strength to 4+ in order to increase ease of sit<>stand transfers and ADL's. 3) Increase independence of mobility to return to pre-morbid home environment and reduce fall risk during ADL activities. Prognosis: Moderate Occupational Therapy Plan: Cont. to assess needs as pt. progresses during duration of hospital stay. OT recommended Mon through Fri, 2-4x's/week.
[2017-02-23] MEDS: CHOLECALCIFEROL 1,000 UNIT TABLET PO SCH (21:59)
[2017-02-23] MEDS: WARFARIN 5 MG TAB PO SCH (21:59)
[2017-02-24] MEDS: 0.9 % SODIUM CHLORIDE 1000ML 1,000 ML IV PRN (04:09)
[2017-02-24] MEDS: WARFARIN 5 MG TAB PO SCH ×2 (04:12→21:14)
[2017-02-24] MEDS: LOSARTAN POTASSIUM 25 MG TABLET PO SCH ×4 (04:12→21:14)
[2017-02-24] MEDS: PANTOPRAZOLE SODIUM 40 MG TABLET PO SCH (06:55)
[2017-02-24] MEDS: LEVOTHYROXINE SODIUM 50 MCG TABLET PO SCH (06:55)
[2017-02-24 07:08] LABS: ALB/GLOB RATIO 1.1 (1.1-1.8); ALBUMIN 2.8 gm/dL (3.5-5.0); ANION GAP 3.6 (7-16); BILIRUBIN,TOTAL 0.84 mg/dL (0.2-1.3); CARBON DIOXIDE 25.4 mmol/L (22-30); CREATININE 1.2 mg/dL (0.52-1.04); TOTAL PROTEIN 5.4 gm/dL (6.3-8.2)
[2017-02-24] MEDS: MULTIVITAMINS/MINERALS TABLET PO SCH ×2 (09:31→12:36)
[2017-02-24] MEDS: ESCITALOPRAM 10 MG TABLET PO SCH ×2 (09:31→12:36)
[2017-02-24] MEDS ORDERED: 0.9 % SODIUM CHLORIDE 1000ML 1,000 ML IV PRN (10:12)
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
--- NOTE | 2017-02-24 11:23 | Occupational Therapy Tx Note ---
Occupational Therapy Tx Note - Treatment Note Tolerated: Fair Total Time Spent With Patient: 40 (ADL) Occupational Therapy Treatment Note: Detail (S: Pt waking up but willing to get out of bed. O: Supine to sit with verbal cues and min assist. Pt donned slippers with min assist to start over toes. Pt oriented to self but confused about location and she required continuous verbal cueing throughout treatment. Sit to stand and amb to toilet with 2 wheeled walker and min assist, pt completed toileting with assist to doff brief and don clean brief with mod assist. Pt amb to sink and completed partial sponge bath in standing with min assist to maintain balance and verbal cues to remain on task. Pt able to comb hair and apply deoderant Indly. Pt amb to chair with walker and CG assist, donned pants with mod assist. Pt confused but able to be redirected this am. Pt left up in chair with chair alarm in place. A: Impaired balance with standing and ambulation, mod assist for dressing and sponge bathing, significant confusion continues.) Occupational Therapy Problem List: Detail (BUE strength, mobility, decreased independence with ADL's.) Occupational Therapy Goals: 1) Increase independence in ADL's to return to pre- morbid home environment with support and/or AE prn. 2) Increase BUE strength to 4+ in order to increase ease of sit<>stand transfers and ADL's. 3) Increase independence of mobility to return to pre-morbid home environment and reduce fall risk during ADL activities. Prognosis: Moderate Occupational Therapy Plan: Cont. to assess needs as pt. progresses during duration of hospital stay. OT recommended Mon through Fri, 2-4x's/week.
--- NOTE | 2017-02-24 11:31 | Physical Therapy Tx Note ---
Physical Therapy Tx Note - Treatment Note Physical Therapy Tx Note: Detail (Nursing staff requested holding PT secondary the patient had increased agitation this am and had been throwing her milk. Family was present. PT will be held today and will monitor the patient's cognitive status and ability to participate in PT.) Physical Therapy Problem List: Detail (1) Decreased standing balance 2) Decreased ability to complete sustained physical activity 3) Supervision for safety with mobility.) Physical Therapy Goals: 1) Assess the patient's balance using standarized balance test. 2) The patient will ambulate independently with use of assistive device 50-100 feet on levels and stairs. 3) The patient will tolerate 30 minutes of physical acitivity with one rest period. 4) The patient will be independent with all transfers. Physical Therapy Plan: PT M-F once daily for gait training, transfer traning, balance and muscular endurance exercises. Will monitor cognitive status.
[2017-02-24] MEDS ORDERED: HYDROCHLOROTHIAZIDE 25 MG TABLET PO ONE (17:41)
[2017-02-24] MEDS ORDERED: LABETALOL HCL 5MG/ML, 20ML VIAL IV ONE (20:27)
[2017-02-24] MEDS: CHOLECALCIFEROL 1,000 UNIT TABLET PO SCH (21:14)
[2017-02-25] MEDS: 0.9 % SODIUM CHLORIDE 1000ML 1,000 ML IV PRN (03:14)
[2017-02-25] MEDS: LEVOTHYROXINE SODIUM 50 MCG TABLET PO SCH (06:43)
[2017-02-25] MEDS: PANTOPRAZOLE SODIUM 40 MG TABLET PO SCH (06:43)
[2017-02-25 06:45] LABS: INR 2.08; PROTHROMBIN TIME (PATIENT) 23.5 SECONDS (9.5-12.1)
[2017-02-25 06:46] LABS: ALBUMIN 2.8 gm/dL (3.5-5.0); ANION GAP 4.1 (7-16); BILIRUBIN,TOTAL 0.74 mg/dL (0.2-1.3); CARBON DIOXIDE 24.9 mmol/L (22-30); CREATININE 1.3 mg/dL (0.52-1.04); TOTAL PROTEIN 5.5 gm/dL (6.3-8.2)
[2017-02-25] MEDS: LOSARTAN POTASSIUM 25 MG TABLET PO SCH (09:39)
[2017-02-25] MEDS: ESCITALOPRAM 10 MG TABLET PO SCH (09:39)
[2017-02-25] MEDS: MULTIVITAMINS/MINERALS TABLET PO SCH (09:39)
--- NOTE | 2017-02-25 12:27 | Physician Progress Note ---
Subjective - Date Date of Physician Progress Note: 02/25/17 - Subjective Subjective Comment: Patient not oriented x 3, exhibiting delirium signs with visual and auditory hallucinations. Had family conference today with son and granddaughter. They voiced they would like to take patient home with home hospice tomorrow. I explained her decline in kidney function and the possibility once she is back at home in regular routine, she might have improved congition and go back to her prior baseline. They mentioned her prior baseline also had visual and auditory hallucinations. Objective - Multidiciplinary Team Multidiciplinary Team: Case Management, Nursing, Social Work - Vital Signs Vital Signs: Vital Signs - Last 24 Hrs Temp Pulse Resp BP BP BP Pulse Ox 02/25/17 09:18 98.2 F 198/85 02/25/17 08:34 98.2 F 79 14 198/85 97 02/25/17 08:29 79 14 02/25/17 03:15 98.6 F 68 14 155/68 96 02/24/17 23:48 98.6 F 69 18 136/71 95 02/24/17 21:00 72 02/24/17 20:19 98.6 F 74 16 189/91 99 02/24/17 18:30 187/88 02/24/17 16:00 98.8 F 77 16 201/91 193/78 98 - General General Appearance: Alert (able to give complete history of her CC), No acute distress, Other ( impairment with remote memory ) - Head Head exam: Normal inspection - Eye Eye exam: Normal appearance, PERRL Pupils: Normal accommodation - ENT ENT exam: Normal exam, Mucous membranes moist, Normal external ear exam, Normal orophraynx, Other (bilateral cerumen occlusions) Ear exam: Normal external inspection. negative: External canal tenderness Nasal Exam: Normal inspection. negative: Discharge, Sinus tenderness Mouth exam: Normal external inspection, Tongue normal Teeth exam: Normal inspection. negative: Dental caries Throat exam: Normal inspection. negative: Tonsillar erythema, Tonsillar exudate - Neck Neck exam: Normal inspection, Full ROM, Other (well healed barely visible surgical scar over thyroid region of neck). negative: Lymphadenopathy, Meningismus, Tenderness - Respiratory Respiratory exam: Normal lung sounds bilaterally. negative: Respiratory distress - Cardiovascular Cardiovascular Exam: Regular rate, Normal rhythm, Systolic murmur (aortic stenosis) - GI/Abdominal GI/Abdominal exam: Soft, Normal bowel sounds. negative: Tenderness - Rectal Rectal exam: Deferred - exam: Deferred - Extremities Extremities exam: Normal inspection, Full ROM, Normal capillary refill. negative: Calf tenderness, Pedal edema, Tenderness - Back Back exam: Reports: Normal inspection, Full ROM. Denies: Muscle spasm, Rash noted, Tenderness - Neurological Neurological exam: Alert, CN II-XII intact, Oriented X3, Reflexes normal - Psychiatric Psychiatric exam: Normal affect, Normal mood - Skin Skin exam: Dry, Intact, Normal color, Warm Assessment and Plan - Assessment and Plan (1) Hypertensive urgency Current Visit: Yes Status: Acute Base Code: I16.0 - HYPERTENSIVE URGENCY Comment: 02/25- will increase losartan from 25mg BID to 100mg daily, will see if improvement in managing BP (2) JOVITA (acute kidney injury) Current Visit: Yes Status: Acute Base Code: N17.9 - ACUTE KIDNEY FAILURE, UNSPECIFIED Comment: 02/25/17- Small decline in GFR today compared to yesteray but remaining in 40s. Explained to family that this is likely her baseline at present. Fluids had to be decreased to 75ml/hrs due to fluid retention. baseline is over 60. Per son, he thinks her schedule may have gotten off due to the holiday and she may not have been eating and drinking like she normally does over the past few days. -continue IV hydration wtih NS -hold HCTZ, will increase losartan to 100mg daily instead of 25mg bid to decrease pill burden and to improve BP control -repeat labs qam (3) Delirium Current Visit: Yes Status: Acute Base Code: R41.0 - DISORIENTATION, UNSPECIFIED Comment: 02/25- had family meeting today with son and granddaughter. they would like to pursue home hospice and get patient discharged tomorrow. per nursing and witnessed during exam patient is combative and is not oriented. Will attempt to get back to regular enviornment as soon as possible but for now medical concerns with managing BP and JOVITA pressing. (4) DVT prophylaxis Current Visit: Yes Status: Acute Base Code: [id number] - Comment: 02/25/17- Patient is therapeutic on coumadin -will have pharmacy manage and continue home dose of coumadin (5) Medication-only resuscitation status Current Visit: Yes Status: Acute Base Code: Z78.9 - OTHER SPECIFIED HEALTH STATUS Comment: 02/23/17- patient is medication only rescuscitation status (6) Orthostasis Current Visit: Yes Status: Acute Base Code: I95.1 - ORTHOSTATIC HYPOTENSION Comment: 02/25/17- Patient noted to have significant orthostasis upon arrival with systolic drop from 172mmhg to 116mmhg from sitting to standing and pt became symptomatically dizzy. Patient follows [facility] both her pcp and cardiology, Dr. Ahn, for htn. conflicting medication records from those offices. -will increase losartan to 100mg daily -Dr. Ahn's office has her listed as taking both coreg and clonidine. Once son brings in meds will know if she is still taking these which may also be contributing to orthostasis. -continue to monitor vitals q8H along [facility] orthostats. (7) Weakness Current Visit: Yes Status: Acute Base Code: R53.1 - WEAKNESS Comment: - Improved but not back to baseline. Today patient states she is feeling more weak than yesterday. Patient still requiring assitance ambulating to bathroom. CT head and CXR negative for acute chagnes. UA negative for infection. suspect weakness 2/2 dehydration -discontinue HCTZ for renal decline -continue IV hydration with NS at 75ml/hr due to fluid retention and encourage oral intake -vitals q8H -repeat labs qam Results - Labs Result Diagrams: 02/21/17 09:37 02/25/17 06:10 Labs Last 24 Hours: Laboratory Results - last 24 hr 02/25/17 02/25/17 06:10 06:10 PT 23.5 H INR 2.08 Sodium 142 Potassium 3.6 Chloride 113 H Carbon Dioxide 24.9 Anion Gap 4.1 L BUN 19 H Creatinine 1.3 H Estimated GFR 41 Random Glucose 86 Calcium 8.3 L Total Bilirubin 0.74 AST 27 ALT 36 Alkaline Phosphatase 52 Total Protein 5.5 L Albumin 2.8 L Globulin 2.7 Albumin/Globulin Ratio 1.0 L DVT/PE Assessment - Risk for VTE Risk for VTE: No Risk Level: Low Risk Assessment Date: 02/22/17 Risk Assessment Time: 13:07 VTE Orders Placed or Will Be Placed: Yes - Active Medicaitons Current Medications: Current Medications Acetaminophen (Tylenol 500mg Tab) 1,000 mg PO Q6H PRN PRN Reason: back pain Escitalopram Oxalate (Lexapro) 10 mg PO DAILY [facility] Last Admin: 02/25/17 09:39 Dose: 10 mg Sodium Chloride () 1,000 mls @ 75 mls/hr IV .[id number] PRN PRN Reason: LARGE VOLUME IV Last Admin: 02/25/17 03:14 Dose: 75 mls/hr Levothyroxine Sodium (Synthroid) 50 mcg PO DAILYTHY [facility] Last Admin: 02/25/17 06:43 Dose: 50 mcg Losartan Potassium (Cozaar) 25 mg PO BID [facility] Last Admin: 02/25/17 09:39 Dose: 25 mg Multivitamins/Minerals (Centrum) 1 tab PO DAILY [facility] Last Admin: 02/25/17 09:39 Dose: 1 tab Pantoprazole Sodium (Protonix) 40 mg PO DAILYAC [facility] Last Admin: 02/25/17 06:43 Dose: 40 mg Vitamin D (Vitamin D3) 1,000 unit PO QHS [facility] Last Admin: 02/24/17 21:14 Dose: Not Given Warfarin Sodium (Coumadin) 5 mg PO QHS [facility] Last Admin: 02/24/17 21:14 Dose: 5 mg AMI Plan - Labs Result Diagrams: 02/21/17 09:37 02/25/17 06:10
[2017-02-25] MEDS: LOSARTAN POTASSIUM 100 MG TABLET PO SCH (14:37)
--- NOTE | 2017-02-25 15:34 | Physical Therapy Tx Note ---
Physical Therapy Tx Note - Treatment Note Tolerated: Good Total Time Spent With Patient: 40 Physical Therapy Tx Note: Detail (Pt in bed upon arrival w/son Adam in room; awake and responsive, pleasant, but not oriented. Moderate assist for bed mobility, to sit up at edge of bed with HOB elevated. Pt would intermittently close her eyes but remain verbally engaged. Sit/stand to front-wheeled walker w /CGA, ambulated w/front-wheeled walker to bathroom w/CGA and VCs for maneuvering walker, pivoting to commode. Mild loss of balance x 2 when pivoting /stepping back to commode, requiring CG/light min. assist to regain. Stand/sit to commode w/min assist for control. Resumed standing to front-wheeled walker w /CGA, stood holding onto grab bar and walker w/SBA for hygiene. Returned to bed w/CGA for ambulation, mod assist to get LE's into bed, then max assist for scooting up in bed and positioning. Left in bed w/call light in reach, son in room, bed alarmed. Nrsg notified.) Physical Therapy Problem List: Detail (1) Decreased standing balance 2) Decreased ability to complete sustained physical activity 3) Supervision for safety with mobility.) Physical Therapy Goals: 1) Assess the patient's balance using standarized balance test. 2) The patient will ambulate independently with use of assistive device 50-100 feet on levels and stairs. 3) The patient will tolerate 30 minutes of physical acitivity with one rest period. 4) The patient will be independent with all transfers. Prognosis: Good Physical Therapy Plan: Anticipate discharge to son's home tomorrow; will check to determine any further physical therapy needs.
[2017-02-25] MEDS ORDERED: ZINC OXIDE 28.35 GM TUBE TOP PRN (19:12)
[2017-02-25] MEDS: WARFARIN 5 MG TAB PO SCH (21:08)
[2017-02-25] MEDS: CHOLECALCIFEROL 1,000 UNIT TABLET PO SCH (21:13)
[2017-02-26] MEDS: LEVOTHYROXINE SODIUM 50 MCG TABLET PO SCH (06:32)
[2017-02-26] MEDS: PANTOPRAZOLE SODIUM 40 MG TABLET PO SCH (06:32)
[2017-02-26] MEDS: MULTIVITAMINS/MINERALS TABLET PO SCH (10:14)
[2017-02-26] MEDS: ESCITALOPRAM 10 MG TABLET PO SCH (10:16)
[2017-02-26] MEDS: LOSARTAN POTASSIUM 100 MG TABLET PO SCH (10:16)
[2017-02-26] MEDS: 0.9 % SODIUM CHLORIDE 1000ML 1,000 ML IV PRN (10:16)
--- NOTE | 2017-02-26 10:39 | Discharge Summary ---
Providers Discharge Summary Date: 02/26/17 Date of admission: 02/21/17 12:43 Expected Date of Discharge: 02/26/17 Attending physician: MILIND LOUIS Primary care physician: MILIND LOUIS Physical Exam - Vital Signs Vital Signs: Vital Signs - Last 24 Hrs Temp Pulse Resp BP Pulse Ox 02/26/17 06:33 98.7 F 67 16 151/74 95 02/25/17 21:00 60 14 02/25/17 18:08 74 16 163/83 98 02/25/17 14:48 168/78 - General General Appearance: Alert (able to give complete history of her CC), No acute distress, Other ( impairment with remote memory ) - Head Head exam: Normal inspection - Eye Eye exam: Normal appearance, PERRL Pupils: Normal accommodation - ENT ENT exam: Normal exam, Mucous membranes moist, Normal external ear exam, Normal orophraynx, Other (bilateral cerumen occlusions) Ear exam: Normal external inspection. negative: External canal tenderness Nasal Exam: Normal inspection. negative: Discharge, Sinus tenderness Mouth exam: Normal external inspection, Tongue normal Teeth exam: Normal inspection. negative: Dental caries Throat exam: Normal inspection. negative: Tonsillar erythema, Tonsillar exudate - Neck Neck exam: Normal inspection, Full ROM, Other (well healed barely visible surgical scar over thyroid region of neck). negative: Lymphadenopathy, Meningismus, Tenderness - Respiratory Respiratory exam: Normal lung sounds bilaterally. negative: Respiratory distress - Cardiovascular Cardiovascular Exam: Regular rate, Normal rhythm, Systolic murmur (aortic stenosis) - GI/Abdominal GI/Abdominal exam: Soft, Normal bowel sounds. negative: Tenderness - Rectal Rectal exam: Deferred - exam: Deferred - Extremities Extremities exam: Normal inspection, Full ROM, Normal capillary refill. negative: Calf tenderness, Pedal edema, Tenderness - Back Back exam: Reports: Normal inspection, Full ROM. Denies: Muscle spasm, Rash noted, Tenderness - Neurological Neurological exam: Alert, CN II-XII intact, Oriented X3, Reflexes normal - Psychiatric Psychiatric exam: Normal affect, Normal mood - Skin Skin exam: Dry, Intact, Normal color, Warm Hospitalization - Hospitalization Admission Diagnosis: JOVITA; Near syncope; renal insufficiency; orthostasis - Problem List/Discharge Diagnosis (1) Hypertensive urgency Current Visit: Yes Status: Acute Base Code: I16.0 - HYPERTENSIVE URGENCY Comment: 02/26 - upon discussing with family, will be initiating hospice and they will not plan on checking vitals unless it is an (2) JOVITA (acute kidney injury) Current Visit: Yes Status: Acute Base Code: N17.9 - ACUTE KIDNEY FAILURE, UNSPECIFIED Comment: 02/25/17- Small decline in GFR today compared to yesteray but remaining in 40s. Explained to family that this is likely her baseline at present. Fluids had to be decreased to 75ml/hrs due to fluid retention. baseline is over 60. Per son, he thinks her schedule may have gotten off due to the holiday and she may not have been eating and drinking like she normally does over the past few days. -continue IV hydration wtih NS -hold HCTZ, will increase losartan to 100mg daily instead of 25mg bid to decrease pill burden and to improve BP control -repeat labs qam (3) Delirium Current Visit: Yes Status: Acute Base Code: R41.0 - DISORIENTATION, UNSPECIFIED Comment: 02/25- had family meeting today with son and granddaughter. they would like to pursue home hospice and get patient discharged tomorrow. per nursing and witnessed during exam patient is combative and is not oriented. Will attempt to get back to regular enviornment as soon as possible but for now medical concerns with managing BP and JOVITA pressing. (4) DVT prophylaxis Current Visit: Yes Status: Acute Base Code: [id number] - Comment: 02/25/17- Patient is therapeutic on coumadin -will have pharmacy manage and continue home dose of coumadin (5) Medication-only resuscitation status Current Visit: Yes Status: Acute Base Code: Z78.9 - OTHER SPECIFIED HEALTH STATUS Comment: 02/23/17- patient is medication only rescuscitation status (6) Orthostasis Current Visit: Yes Status: Acute Base Code: I95.1 - ORTHOSTATIC HYPOTENSION Comment: 02/25/17- Patient noted to have significant orthostasis upon arrival with systolic drop from 172mmhg to 116mmhg from sitting to standing and pt became symptomatically dizzy. Patient follows [facility] both her pcp and cardiology, Dr. Ahn, for htn. conflicting medication records from those offices. -will increase losartan to 100mg daily -Dr. Ahn's office has her listed as taking both coreg and clonidine. Once son brings in meds will know if she is still taking these which may also be contributing to orthostasis. -continue to monitor vitals q8H along wtih orthostats. (7) Weakness Current Visit: Yes Status: Acute Base Code: R53.1 - WEAKNESS Comment: - Improved but not back to baseline. Today patient states she is feeling more weak than yesterday. Patient still requiring assitance ambulating to bathroom. CT head and CXR negative for acute chagnes. UA negative for infection. suspect weakness 2/2 dehydration -discontinue HCTZ for renal decline -continue IV hydration with NS at 75ml/hr due to fluid retention and encourage oral intake -vitals q8H -repeat labs qam - Hospitalization Course Procedures: Cardiology Procedures 02/21/17 12:51 Telemetry [Computer Networker] .Continuous Abnormal Labs: Abnormal Lab Results 02/22/17 02/23/17 02/24/17 Range/Units 06:00 06:33 06:11 PT (9.5-12.1) SECONDS Chloride 111 H 114 H 115 H (98-107) mmol/L Anion Gap 1.2 L 0.1 L 3.6 L (7-16) BUN 34 H 25 H 20 H (7-17) mg/dL Creatinine 1.5 H 1.2 H 1.2 H (0.52-1.04) mg/dL Calcium 8.3 L 8.4 L (8.5-10.1) mg/dL AST 39 H (14-36) U/L Total Protein 6.2 L 5.9 L 5.4 L (6.3-8.2) gm/dL Albumin 3.3 L 3.1 L 2.8 L (3.5-5.0) gm/dL Albumin/Globulin Ratio (1.1-1.8) 02/25/17 02/25/17 Range/Units 06:10 06:10 PT 23.5 H (9.5-12.1) SECONDS Chloride 113 H (98-107) mmol/L Anion Gap 4.1 L (7-16) BUN 19 H (7-17) mg/dL Creatinine 1.3 H (0.52-1.04) mg/dL Calcium 8.3 L (8.5-10.1) mg/dL AST (14-36) U/L Total Protein 5.5 L (6.3-8.2) gm/dL Albumin 2.8 L (3.5-5.0) gm/dL Albumin/Globulin Ratio 1.0 L (1.1-1.8) Condition at Discharge: (1) Good Discharge Medications - Discharge Medications Home Medications: Ambulatory Orders Cholecalciferol (Vitamin D3) [Vitamin D3] 1,000 unit PO QHS 03/13/15 [Last Taken 1 Day Ago ~02/20/17] Acetaminophen [Tylenol 500Mg Tab] 1,000 mg PO Q6H PRN 02/26/17 [Last Taken Unknown] Zinc Oxide [Desitin] 1 gm TOP ASDIR PRN tube 02/26/17 [Last Taken Unknown] Discharge Plan - Discharge Instructions Activity at Discharge: Increase Activity as Tolerated Diet at Discharge: Regular Diet Additional Instructions: Recommend Ensure 2 times a day
== END 2017-02-26 18:00 | disposition hospice, home (50) | DRG 948 ==
LOC: ER 09:13 → MEDSURG 12:43
PROVIDERS: ADMIT Family Medicine; ATTEND Family Medicine
DX: R53.1 Weakness (principal); N17.9 Acute kidney failure, unspecified; N28.9 Disorder of kidney and ureter, unspecified; E03.9 Hypothyroidism, unspecified; Z86.711 Personal history of pulmonary embolism; Z79.01 Long term (current) use of anticoagulants; J43.9 Emphysema, unspecified; I25.10 Atherosclerotic heart disease of native coronary artery without angina pectoris; E86.0 Dehydration; R55 Syncope and collapse; Z78.9 Other specified health status; R41.0 Disorientation, unspecified; I16.0 Hypertensive urgency
CPT/HCPCS: 70450; 71020; 80048; 80053; 80076; 81003; 82553; 83605; 84443; 84484; 85025; 85379; 85610; 85730; 93005; 93010; 93041; 97110; 97165; 97530; 97535; 99223; 99233; 99239; 99285